=== PATIENT | female | born 1970 | race Caucasian/White ===

== ENCOUNTER 2017-02-26 18:23 | Emergency (ER) | payer BC ==
[~2017-02-26 18:23] MED LIST: ALEVE220 M4 PO; CELEXA40 M2 PO; KETOROLAC TROME10 MG PO; NORCO 10-325 T1 EACH PO; NORTRIPTYLINE H50 M1 PO; PRILOSEC20 M1 PO; SOMA350 M1 PO; TOPAMAX50 M3 PO
== END 2017-02-26 22:10 ==
LOC: EDMED 18:23
DX: G89.29 Other chronic pain (principal); Z87.39 Personal history of other diseases of the musculoskeletal system and connective tissue; K21.9 Gastro-esophageal reflux disease without esophagitis; F17.210 Nicotine dependence, cigarettes, uncomplicated